=== PATIENT | male | born 1990 | race Two or more races ===

== ENCOUNTER 2020-07-03 14:10 | Emergency (ER) | payer OTHER ==
[~2020-07-03] VITALS: Ht 175.3 cm; Wt 97.5 kg
[2020-07-03] MEDS ORDERED: QDOLO5 MG/1 ML (14:31)
== END 2020-07-04 02:18 | disposition home or self-care (01) ==
LOC: ER 14:10
DX: N45.1 Epididymitis (principal); R10.31 Right lower quadrant pain

== ENCOUNTER 2021-05-18 21:00 | Emergency (ER) | payer OTHER ==
[~2021-05-18] VITALS: Ht 172.7 cm; Wt 95.3 kg
[~2021-05-18 21:00] MED LIST: QDOLO5 MG/1 ML
[2021-05-19] MEDS ORDERED: LEVOTHYROXINE25 MCG PO (04:36)
[2021-05-19] MEDS ORDERED: ACETAMINOPHEN650 M2 PO (04:36)
[2021-05-19] MEDS ORDERED: OSEL75CA PO (04:36)
[2021-05-19] MEDS ORDERED: NORFLEX100MG PO (04:36)
== END 2021-05-19 06:01 | disposition home or self-care (01) ==
LOC: ER 21:00
DX: J11.1 Influenza due to unidentified influenza virus with other respiratory manifestations (principal); E03.9 Hypothyroidism, unspecified